=== PATIENT | female | born 2000 | race American Indian/Alaskan Native ===

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

== ENCOUNTER 2019-10-03 23:08 | Inpatient (IN) | payer MEDICAID ==
[2019-10-04] MEDS ORDERED: ONDANSETRON 4 MG/2 ML INJ IV PRN (00:14)
[2019-10-04] MEDS ORDERED: ePHEDrine SULFATE 50 MG/1 ML INJ IV PRN (00:14)
[2019-10-04] MEDS ORDERED: TERBUTALINE 1 MG/1 ML INJ IVP PRN (00:14)
[2019-10-04] MEDS ORDERED: MINERAL OIL 30 ML ORAL LIQD PO PRN (00:14)
[2019-10-04] MEDS ORDERED: AMPICILLIN/NS 2 GM/100 ML 2 GM/100 ML BAG IV ONE (00:14)
[2019-10-04] MEDS ORDERED: BUTORPHANOL 2 MG/1 ML INJ IV PRN (00:14)
[2019-10-04] MEDS ORDERED: TERBUTALINE 1 MG/1 ML INJ SUB-Q PRN (00:14)
[2019-10-04] MEDS ORDERED: LIDOCAINE (2%) 20 MG/1 ML VIAL 20 ML MDV INFILTRATI ONE (00:14)
[2019-10-04] MEDS ORDERED: LACTATED RINGERS 1,000 ML IV SCH (01:00)
[2019-10-04] MEDS ORDERED: OXYTOCIN DRIP 30 UNITS/500 ML BAG IV SCH (01:00)
[2019-10-04] MEDS ORDERED: OXYTOCIN 20 UNIT/1000ML DRIP 20 UNITS/1,000 ML BAG IV SCH (01:00)
[2019-10-04 01:05] LABS: Hematocrit 35.1 % (30.3-42.9); Mean Corpuscular HGB Conc 34 % (30-34); Mean Corpuscular Volume 93 fl (79-97); Platelet Count 179 K/mm3 (140-440); Red Blood Count 3.79 M/mm3 (3.65-5.03); Red Cell Distribution Width 14.8 % (13.2-15.2)
--- NOTE | 2019-10-04 01:20 | History and Physical Report ---
History of Present Illness Date of examination: 10/04/19 Date of admission: 10/04/19 00:40 Chief complaint: 18yo at 39+4/7 weeks, early labor GBS pos HSV 2 pos History of present illness: 18yo at 39+4/7 admitted for observation Patient had Category 2 strip in triage, plan for admit to obs and monitor no cervical change is shellie visit in the office today 4cm/70%/-3 GBS pos Past History Past Surgical History: no surgical history Social history: no significant social history - Obstetrical History : 2 Medications and Allergies Allergies Allergy/AdvReac Type Severity Reaction Status Date / Time No Known Allergies Allergy Unverified 10/14/17 22:40 Active Meds: Active Medications Butorphanol Tartrate (Stadol) 2 mg IV Q2H PRN PRN Reason: Pain , Severe (7-10) Ephedrine Sulfate (Ephedrine Sulfate) 10 mg IV Q2M PRN PRN Reason: Hypotension Oxytocin/Sodium Chloride (Pitocin/Ns 20 Unit/1000ml Drip) 20 units in 1,000 mls @ 125 mls/hr IV DIRECT KARINA Oxytocin/Sodium Chloride (Pitocin/Ns 30 Unit/500ml) 30 units in 500 mls @ 1 mls/hr IV TITR KARINA; Protocol Lactated Ringer's (Lactated Ringers) 1,000 mls @ 125 mls/hr IV DIRECT KARINA Last Admin: 10/04/19 00:27 Dose: 125 mls/hr Documented by: Mineral Oil (Mineral Oil) 30 ml PO QHS PRN PRN Reason: Constipation Ondansetron HCl (Zofran) 4 mg IV Q8H PRN PRN Reason: Nausea And Vomiting Terbutaline Sulfate (Brethine) 0.25 mg SUB-Q ONCE PRN PRN Reason: Hyperstimulation/Hypertonicity Terbutaline Sulfate (Brethine) 0.25 mg IVP ONCE PRN PRN Reason: Hyperstimulation/Hypertonicity - Vital Signs Vital signs: Vital Signs Pulse Pulse Ox 106 H 98 10/03/19 23:30 10/03/19 23:30 Temp Pulse Resp BP Pulse Ox 98.2 F 107 H 18 114/70 97 10/04/19 00:48 10/04/19 01:14 10/04/19 00:48 10/04/19 00:54 10/04/19 01:14 - Physical Exam Breasts: Positive: deferred Cardiovascular: Regular rate Lungs: Positive: Clear to auscultation Abdomen: Positive: normal appearance, soft, normal bowel sounds Anus/Rectum: Positive: normal perianal skin Extremities: Positive: normal Deep Tendon Reflex Grade: Normal +2 - Obstetrical FHR: category 1 Uterine Contraction Monitor Mode: External Cervical Dilatation: 4 Cervical Effacement Percentage: 70 station: -3 Uterine Contraction Pattern: Regular Uterine Contraction Intensity: Moderate Results Result Diagrams: 10/04/19 00:27 All other labs normal. Assessment and Plan IUP at 39+4/7 weeks Category 2 strip in triage, now Category 1 admitted for obs, r/out labor and CFM GBS pos, HSV2 pos if no cervical change and pt has overall reactive strip may d/c home in AM Maternal/ well being reassuring overall CStaci Javed MD
[2019-10-04 07:28] VITALS: BP 112/60
--- NOTE | 2019-10-04 07:35 | Progress Note ---
Subjective - Subjective Date of service: 10/04/19 Interval history: FHT Category 1 no cervical change, not in labor plan for d/c home labor precautions FUP within the week Nikki Javed MD Objective - Vital Signs Vital Signs: Vital Signs - 12hr 10/03/19 10/03/19 10/03/19 23:30 23:31 23:32 Temperature Pulse Rate 106 H 117 H 113 H Respiratory Rate Blood Pressure 115/71 Blood Pressure [Right] O2 Sat by Pulse 98 93 Oximetry 10/03/19 10/03/19 10/03/19 23:33 23:35 23:40 Temperature 97.6 F Pulse Rate 112 H 118 H 119 H Respiratory 18 Rate Blood Pressure Blood Pressure 115/71 [Right] O2 Sat by Pulse 97 96 96 Oximetry 10/03/19 10/03/19 10/03/19 23:45 23:48 23:50 Temperature Pulse Rate 99 H 107 H 116 H Respiratory Rate Blood Pressure Blood Pressure [Right] O2 Sat by Pulse 97 94 94 Oximetry 10/03/19 10/04/19 10/04/19 23:55 00:00 00:05 Temperature Pulse Rate 110 H 104 H 106 H Respiratory Rate Blood Pressure Blood Pressure [Right] O2 Sat by Pulse 95 95 96 Oximetry 10/04/19 10/04/19 10/04/19 00:08 00:10 00:13 Temperature Pulse Rate 109 H 106 H 103 H Respiratory Rate Blood Pressure Blood Pressure [Right] O2 Sat by Pulse 94 93 94 Oximetry 10/04/19 10/04/19 10/04/19 00:15 00:20 00:25 Temperature Pulse Rate 102 H 107 H 107 H Respiratory Rate Blood Pressure Blood Pressure [Right] O2 Sat by Pulse 96 97 96 Oximetry 10/04/19 10/04/19 10/04/19 00:30 00:35 00:48 Temperature 98.2 F Pulse Rate 100 H 100 H 98 H Respiratory 18 Rate Blood Pressure Blood Pressure 114/70 [Right] O2 Sat by Pulse 96 97 98 Oximetry 10/04/19 10/04/19 10/04/19 00:54 00:59 01:04 Temperature Pulse Rate 102 H 99 H 103 H Respiratory Rate Blood Pressure 114/70 Blood Pressure [Right] O2 Sat by Pulse 97 97 98 Oximetry 10/04/19 10/04/19 10/04/19 01:09 01:14 01:19 Temperature Pulse Rate 104 H 107 H 95 H Respiratory Rate Blood Pressure Blood Pressure [Right] O2 Sat by Pulse 97 97 97 Oximetry 10/04/19 10/04/19 10/04/19 01:24 01:29 01:34 Temperature Pulse Rate 96 H 98 H 103 H Respiratory Rate Blood Pressure Blood Pressure [Right] O2 Sat by Pulse 97 97 97 Oximetry 10/04/19 10/04/19 10/04/19 02:39 04:25 04:29 Temperature 97.8 F Pulse Rate 90 Respiratory Rate Blood Pressure 100/61 Blood Pressure [Right] O2 Sat by Pulse 77 L Oximetry 10/04/19 10/04/19 07:25 07:27 Temperature 97.5 F L Pulse Rate 78 78 Respiratory 16 Rate Blood Pressure 112/60 Blood Pressure 112/60 [Right] O2 Sat by Pulse Oximetry - Labs Labs: Laboratory Results - last 24 hr 10/04/19 10/04/19 00:27 00:27 WBC 7.6 RBC 3.79 Hgb 12.0 Hct 35.1 MCV 93 MCH 32 MCHC 34 RDW 14.8 Plt Count 179 Blood Type B POSITIVE
[2019-10-04] MEDS ORDERED: valACYclovir 500 MG TAB PO SCH (10:00)
== END 2019-10-04 08:00 | disposition home or self-care (01) | DRG 781 ==
LOC: TRG 23:08 → APU 23:10 → TRG 10-04 00:14 → APU 10-04 00:40 → LD 10-04 00:52
PROVIDERS: ADMIT Obstetrics & Gynecology; ATTEND Obstetrics & Gynecology
DX: O98.513 Other viral diseases complicating pregnancy, third trimester (principal); B00.9 Herpesviral infection, unspecified; O99.820 Streptococcus B carrier state complicating pregnancy; Z3A.39 39 weeks gestation of pregnancy
CPT/HCPCS: 36415; 85027; 86850; 86900; 86901; G0378; J2590; J7120